=== PATIENT | male | born 1990 | race Caucasian/White ===

== ENCOUNTER 2018-09-06 19:29 | Emergency (ER) | payer SELFPAY ==
[2018-09-06 19:30] VITALS: BP 151/79; PULSE 97; RESP 18; TEMP 36.9; O2SAT 100; BMI 32.2
[2018-09-06 19:32] VITALS: BP 151/79; PULSE 97; RESP 18; O2SAT 100
--- NOTE | 2018-09-06 20:01 | EKG12_ITS ---
Test Reason : CP Blood Pressure : / mmHG Vent. Rate : 089 BPM Atrial Rate : 089 BPM P-R Int : 160 ms QRS Dur : 104 ms QT Int : 340 ms P-R-T Axes : 057 079 044 degrees QTc Int : 413 ms Normal sinus rhythm with sinus arrhythmia Normal ECG Confirmed by ELENA ESPAÑA, MIRNA ([id number]), editor & co founder GEOVANNA MUNIZ ([id number]) on 09/10/2018 1:21:50 PM Referred By: Confirmed By:MIRNA PARKER MD
--- NOTE | 2018-09-06 20:03 | ED.RN ---
NO OLD EKGS IN MUSE
[2018-09-06] MEDS: Ketorolac 30 MG/ML Syringe IV (20:13)
--- NOTE | 2018-09-06 20:18 | RAD_ITS ---
STUDY: X-RAY CHEST REASON FOR EXAM: Male, 28 years old. Chest pain. TECHNIQUE: PA and lateral views of the chest. COMPARISON: None. FINDINGS: The lungs are clear and expanded. There is no demonstrated pleural abnormality. Normal size heart. Normal mediastinum and johanna. Normal visualized pulmonary arteries. Normal visualized aortic arch and descending thoracic aorta. Normal visualized thoracic spine. Normal visualized ribs, clavicles, and shoulders. There is no demonstrated abnormality of the visualized soft tissue structures of the upper abdomen. RAD/Chest PA and Lateral IMPRESSION: No acute cardiopulmonary process. Electronically Signed: Elizabeth Mejia MD at 20:41 EST Tel , Service support ,
--- NOTE | 2018-09-06 20:18 | ED.VISSUMM ---
- ER Visit Summary Date of Service: 09/06/18 Chief Complaint: Left breast pain History of Present Illness: The patient is a 28 M who presents with pain to the left breast area. Reports feeling a swollen area just around the nipple and having pain that shoots up and around the entire left breast. He has had intermittent symptoms similar to this over the past 3+ years. He has never been seen by his physician for this. Patient does have a history of anabolic steroid use 2 years ago and believes this contributed to his symptoms. Physical Examination: Vital signs significant for blood pressure 151/79, otherwise unremarkable. Patient sitting upright in bed no acute distress. Head neck examination is unremarkable. Heart is regular rate and rhythm. Lungs sounds are clear. Patient has reproducible tenderness over the left chest wall. There is a small palpable firm mobile nodule just at the left nipple area that may represent a lymph node. There is no cellulitis. Test Results: Two-view chest x-ray is unremarkable. EKG is sinus 89 with no sign of acute ischemia. CBC was obtained to check lymphocyte count and this is unremarkable. Emergency Department Course and Treatment: Patient was given Toradol IV. On repeat examination he is resting comfortably. We did discuss the importance of follow-up for outpatient ultrasound that his PCP can arrange for him. He voices understanding and agreement. Treatment Plan: [] Disposition: Discharge Impression: Chest wall pain This note was generated with [employer] dictation software. It may contain incorrect words, spelling, and punctuation that were not noted in review of the chart prior to signing ED Disposition - Plan for ED Patient: Chief Complaint: Chest Other Referrals: Care Physician,No Primary [Primary Care Provider] -
[2018-09-06 20:29] LABS: Absolute Lymphocyte Count 1.32 X10^3/ul (0.83-4.51); Absolute Neutrophil Count 3.7 X10^3/uL (2.0-7.7); Basophil# 0.01 X10^3/uL; Basophil% 0.2 % (0-1); Eosinophil# 0.14 X10^3/uL; Eosinophils% 2.5 % (0-5); Hematocrit 40.1 % (40-54); Hemoglobin 14.3 g/dl (13.0-16.5); Lymphocyte # 1.32 X10^3/ul (4.0); Lymphocyte % 23.3 % (19-41); Mean Corp Hgb Conc 35.7 g/gl (32-36); Mean Corpuscular Hgb 29.3 pg (27.0-32.0); Mean Corpuscular Volume 82.2 fL (80-94); Mean Platelet Vol. 8.5 fl (6.2-12.0); Monocyte# 0.53 X10^3/uL; Monocyte% 9.4 % (0-10); Neutrophil # 3.66 X10^3/uL (2.7-7.7); Neutrophil % 64.6 % (47-70); Platelet Count 184 K/mm3 (150-450); RBC Distribution Width CV 13.2 % (11.6-14.6); RBC Distribution Width SD 39.8 fl (35.1-43.9); Red Blood Count 4.88 M/mm3 (4.6-6.2); White Blood Count 5.7 K/mm3 (4.4-11.0)
[2018-09-06 20:30] LABS: POSITIVE COUNT NO; POSITIVE DIFFERENTIAL NO; POSITIVE MORPHOLOGY NO
--- NOTE | 2018-09-06 20:49 | ED.DEP ---
ED Disposition - Plan for ED Patient: Disposition: Home or Assisted Living Chief Complaint: Chest Other Instructions: ED Strain Chest Wall Referrals: Obed Hanks MD [NON-STAFF] - As soon as possible
[2018-09-06 21:20] VITALS: BP 143/59; PULSE 78; RESP 16; O2SAT 99
== END 2018-09-06 21:22 | disposition home or self-care (01) ==
PROVIDERS: Emergency Provider Emergency Medicine
DX: R07.89 Other chest pain (principal); N64.4 Mastodynia; N63.20 Unspecified lump in the left breast, unspecified quadrant; R06.00 Dyspnea, unspecified; R11.0 Nausea; R53.1 Weakness
CPT/HCPCS: 71046; 85025; 93005; 96374; 99283; A4216

== ENCOUNTER 2019-08-26 18:11 | Emergency (ER) | payer OTHER, SELFPAY ==
[2019-08-26 18:12] VITALS: BP 156/90; PULSE 69; RESP 16; TEMP 36.3; O2SAT 100; BMI 33.7
--- NOTE | 2019-08-26 19:16 | CT_ITS ---
STUDY: CT BRAIN WITHOUT CONTRAST REASON FOR EXAM: Male, 29 years old. Fall RADIATION DOSAGE (If Supplied By Facility): DLP = ( 846.73 ) mGycm TECHNIQUE: Transaxial CT imaging of the brain was performed without administration of intravenous contrast material. Individualized dose optimization techniques were used for this CT. COMPARISON: None. FINDINGS: There is no acute bleed or infarct. There are normal white matter tracts. The ventricles are normal in configuration. There is no hydrocephalus. The visualized paranasal sinuses are clear. The mastoid air cells are well aerated. There is no skull fracture. CT/Brain/Head without Contrast IMPRESSION: No acute intracranial abnormality. Electronically Signed: Octavio Donohue, at 20:07 EST Tel , Service support ,
[2019-08-26] MEDS: Acetaminophen 500 MG Tablet 1000 MG PO (19:40)
[2019-08-26] MEDS: Ondansetron ODT 4 MG Tablet PO (19:40)
--- NOTE | 2019-08-26 20:23 | ED.DCSUM_ITS ---
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 Saucedo. He reports that approximately 230 this afternoon he fell through the ceiling from an attic. He reports that he hit his head and is amnestic to some events. He complains of a headache that is 4-10 in severity. He denies any other injuries. No neck, back, chest, abdomen, or extremity pain. Patient reports that since that time he has had photophobia and his balance has been off. He is not on anticoagulants. Physical Examination: Vitals: Stable. Afebrile. Neck: No vertebral tenderness. Full ROM without difficulty. Cleared by NEXUS criteria. Back: No vertebral tenderness. General: A&O x 3. NAD. Cardiovascular exam: Regular rate and rhythm, no murmur, rub or gallop. Respiratory exam: Chest nontender. No crepitus. Clear to auscultation bilaterally. No wheezes or stridor. Abdominal exam: Soft, nontender, nondistended, normal bowel sounds. No pain in RUQ or LUQ specifically. No peritoneal signs. Extremity: Atraumatic. No pain with range of motion. Test Results: CT brain shows no acute disease. Emergency Department Course and Treatment: Patient was treated Tylenol and Zofran p.o. He is resting comfortably. Treatment Plan: Patient be discharged with concussion precautions. He is also given work restrictions. Instructed to follow-up corporate care in 1 week for another exam. Disposition: To home in improved and stable condition. Impression: 1. Concussion. This note was generated with [employer] dictation software. It may contain incorrect words, spelling, and punctuation that were not noted in review of the chart prior to signing ED Disposition - Plan for ED Patient: Disposition: Home or Assisted Living Instructions: CONCUSSION, No Wake Up Referrals: Corporate,Care [GROUP OF PHYSICIANS] - 1 Week
[2019-08-26 21:46] VITALS: BP 121/67; PULSE 72; RESP 15; O2SAT 97
== END 2019-08-26 21:48 | disposition home or self-care (01) ==
LOC: ED 19:27
PROVIDERS: Emergency Provider Emergency Medicine; Family Provider Nurse Practitioner Family; PCP Nurse Practitioner Family
DX: S06.0X0A Concussion without loss of consciousness, initial encounter (principal); R40.2410 Glasgow coma scale score 13-15, unspecified time; W13.3XXA Fall through floor, initial encounter; Y93.9 Activity, unspecified; Y92.9 Unspecified place or not applicable
CPT/HCPCS: 70450; 99283

== ENCOUNTER 2019-09-20 08:54 | Outpatient (RCR) | payer OTHER, SELFPAY ==
[2019-09-16 14:25] VITALS: BMI 33.7
--- NOTE | 2019-09-20 10:03 | HP.PTEVAL_ITS ---
Patient's Visit Information BETHANIE GOMEZ is a 29 year old M referred to Physical Therapy by CRYSTAL Gomes with a diagnosis of concussion. Date of Evaluation: 09/20/19 Physical Therapist: Freddy Osman, JOYCET, OCS, CSCS - Visit Plan Frequency: 1-2x /Week Duration: 4-6 Weeks Plan: 1-2x/week for progression of vestibular habituation and adaptation ex. Talked with patient regarding speech therapy for cognitive deficits but he wishes to wait a little while and see how things go. - Subjective Findings: Spotty vision. Got concussion falling through celing and hit head on beam about a month ago. No other injuries. ROBERTSON werre there but have gone away. Spotty vision comes and goes and is worse with bright light or shift of lights. Lasts about 10 seconds. Happens 3-4x/day depending on lights. Lightheaded with this vision but no spinning. Feels off balance for those 10 seconds also. Feels steady but not normal. Works out regularly at gym lifting adn feels weaker. 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 Normally woudl be climbing ladders and [employer], is unable to drive [employer] vehicles and climbing ladders. Does work odds and ends for normal shift now but was 3-4 hour days up until last week. Body builds and took a day off but back to it. LED lights are bothersome at the gym. Gym workout is normal. Computer throughout the day is OK if brightness is kept low. Basic aDLs are OK, Turns lights off. - Objective Walks normal and transfers normal, does wince with bright lights. VOR walking is challenging. SLS 30 sec eo, but challenging immediately with ec. Steps reciprocal without rail today adn feels good. Cervical ROM is slow but fulla nd painfree. Objects blur as he gets to end range. - B hallpike marc test, - roll tests. Oculomotor: - skew eye deviation. - ocular tilt. no nystagmus today with gaze or head shake. - head thrust but blurry to patient. Pursuit is normal and asymptomatic as is saccades. VOR is very frustrating adn challenging horizontal today for patient with 4/10 symptoms very quickly at 30 seconds but really starting immediately. Vertical is better but no full speed. Patient has hard time remembering what he talked about with his last night or what he did in his workout yesterday and needed to be reminded from his about his appointment today. Definite memory lapses showing cognitive deficits, Speech therapy may be appropriate for this in the future but pateint wishes to wait until he gets vestibular underway. - Balance Scores Functional Gait Assessment Score: 30 % Disability: 0 CATSIB Score (Max score 120 seconds): 100 - Goals Goal 1:: VOR 60 seconds fast without frustration or blurriness or symptoms Goal Time Frame: 4-6 Weeks Goal 2:: Patient safe and ready to return to work full go Goal Time Frame: 4-6 Weeks Goal 3:: Sleep normal without deficit Goal Time Frame: 4-6 Weeks Goal 4:: Pt feel 100% back to normal with visual/lightheadedness. Goal Time Frame: 4-6 Weeks Goal 5:: foam stance ft with ec 30 seconds Goal Time Frame: 4-6 Weeks - Rehabilitation Potential Physical Therapy Diagnosis: concussion with cognitive and vestibular challenges. Rehabilitation Potential: Fair - Anticipated Interventions Patient/Client Instruction: Educate patient on: Condition, Plan of Care For the Purpose of:: To increase tolerance to activity/condition/position, To improve ability of physical actions for home/community/work/leisure, To improve gait and locomotor functions Comment: adaptationa dn habituation, return to function For the Purpose of:: To increase tolerance to activity/condition/position, To improve balance Thank you for the opportunity to evaluate your patient. For Medicare and Medicare HMO plans, please review the plan of care and approve it. It will need to be FAXED BACK to us at [phone] for Medicare purposes. For Medicare only, by signing this I certify the plan of care. Please let me know if there are questions or concerns regarding this plan of care. Physician Signature: Date:
--- NOTE | 2019-10-18 09:13 | HP.PT.NRP ---
HP - Discharge Summary (1) - Patient Information BETHANIE GOMEZ was seen in my office for initial evaluation on 09/20/19. The following Plan of Care was established for this patient: Initial Frequency: 1-2x /Week Initial Duration: 4-6 Weeks - Anticipated Interventions Patient/Client Instruction: Educate patient on: Condition, Plan of Care For the Purpose of:: To increase tolerance to activity/condition/position, To improve ability of physical actions for home/community/work/leisure, To improve gait and locomotor functions For the Purpose of:: To increase tolerance to activity/condition/position, To improve balance This patient was last seen in our office 09/20/19. Pertinent comments regarding their Physical therapy will appear below: Pt seen for evaluationa dn initial ex instruct. POC established. Patient no showed for all other visits. I will discontinue at this time due to nonattendance. At this point I will be discontinuing this patient from physical therapy. I would be happy to see this patient again in the future if found appropriate by the physician. Thank you! Freddy Osman, DPT, OCS, CSCS
== END 2019-09-20 19:00 | disposition home or self-care (01) ==
LOC: PT 08:54
PROVIDERS: Family Provider Nurse Practitioner Family; PCP Nurse Practitioner Family; Referring Provider Physician Assistant; Visit Provider Physician Assistant
DX: S06.0X9D Concussion with loss of consciousness of unspecified duration, subsequent encounter (principal)
CPT/HCPCS: 97110; 97162

== ENCOUNTER → 2020-04-28 17:39 | Outpatient (CLI) | payer SELFPAY ==
[2019-10-02 14:27] VITALS: BMI 33.7
== END ==
LOC: MTDU 17:39
PROVIDERS: PCP Nurse Practitioner; Referring Provider Nurse Practitioner; Visit Provider Nurse Practitioner
DX: Z20.828 Contact with and (suspected) exposure to other viral communicable diseases (principal)
CPT/HCPCS: 87635; 94799; U0003